=== PATIENT | male | born 1945 ===

== ENCOUNTER → 2020-02-15 | Outpatient (CLI) | payer MEDICARE, BC ==
[2020-02-15 12:28] LABS: Basophils # (A) 0.1 k/uL (0-0.2); Basophils % (A) 1 %; Eosinophils # (A) 0.8 k/uL (0-0.7); Eosinophils % (A) 6 %; HCT 46.8 % (39.0-53.0); HGB 14.8 gm/dL (13.0-17.5); Lymphocytes # (A) 2.7 k/uL (1.0-4.8); Lymphocytes % (A) 22 %; MCH 29.1 pg (25.0-35.0); MCHC 31.7 g/dL (31.0-37.0); MCV 91.9 fL (80.0-100.0); Mean Platelet Volume 7.9; Monocytes # (A) 0.8 k/uL (0-1.0); Monocytes % (A) 6 %; Neutrophils # (A) 7.8 k/uL (1.3-7.7); Neutrophils % (A) 63 %; Platelet Count 265 k/uL (150-450); RBC 5.09 m/uL (4.30-5.90); RDW 13.9 % (11.5-15.5); WBC 12.4 k/uL (3.8-10.6)
--- NOTE | 2020-02-15 13:26 | CT ---
EXAMINATION TYPE: CT chest w con DATE OF EXAM: 02/15/2020 COMPARISON: Chest x-ray February 06, 2020 and older study May 31, 2019 HISTORY: Cough and COPD. CT DLP: 552.6 mGycm. Automated Exposure Control for Dose Reduction was Utilized. TECHNIQUE: CT scan of the thorax is performed following with IV Contrast, patient injected with 100 mL of Isovue M300. FINDINGS: LUNGS: Some faint areas of groundglass opacity for reference vague area of posterior right upper lobe axial image 15 and vague area inferior posterior right upper lobe near axial image 31. Occasional sc attered micronodule for reference 2 to 3 mm left upper lobe axial image 22 and 6 to 7 mm groundglass nodule left upper lobe axial image 15. Occasional scattered bleb. No pleural effusion or pneumothorax . Mild central peribronchial wall thickening consistent with underlying COPD. MEDIASTINUM: There are prominent borderline enlarged bilateral hilar lymph nodes. Prominent but subce ntimeter thoracic lymph nodes in the prevascular space and paratracheal region. Trace pericardial eff usion is seen. No cardiomegaly. Mildly enlarged main pulmonary artery at 2.9 cm axial image 23 sugges ting underlying pulmonary hypertension. Adjacent ascending aorta measures up to 4.1 cm in diameter ax ial image 24 OTHER: No additional significant abnormality is seen. IMPRESSION: Mild emphysematous change with faint areas of groundglass opacity could reflect early asif ma and/or infiltrates. Consider Covid-19 testing in current medical environment. A Yellow level critical message alert has been initiated for Josee Kerr MD via the [employer] Critical Results System on 02/15/2020 1:24 PM. This message alert has been sent to Josee Kerr MD via the preferences provided by the clinician for the receipt of Radiology Critical Findings. Message ID [id number].
[2020-02-15 21:31] LABS: Cat Epith & Dander IgE <0.10 kU/L; Dermato. farinae IgE <0.10 kU/L
[2020-02-15 21:32] LABS: Cockroach IgE <0.10 kU/L; Dog Dander IgE <0.10 kU/L
[2020-02-15 21:33] LABS: Alternaria alternata IgE <0.10 kU/L; Aspergillus fumagatus IgE <0.10 kU/L; Cladosporian herbarum IgE <0.10 kU/L
[2020-02-15 21:34] LABS: Birch IgE <0.10 kU/L; Elm IgE <0.10 kU/L; Maple (Box Elder) IgE <0.10 kU/L; Oak IgE <0.10 kU/L; Ragweed,Common IgE <0.10 kU/L
[2020-02-15 21:35] LABS: Red Top (Bentgrass) IgE <0.10 kU/L
== END | disposition home or self-care (01) ==
LOC: RADCTMAIN 11:43
PROVIDERS: ATTEND Internal Medicine
DX: J43.9 Emphysema, unspecified (principal)
CPT/HCPCS: 82565; 84520; 85025; 86003; 82785; 71260; 36415; Q9967

== ENCOUNTER → 2020-10-02 | Outpatient (CLI) | payer MEDICARE, BC ==
[2020-10-02 17:38] LABS: Basophils # (A) 0.2 k/uL (0-0.2); Basophils % (A) 1 %; Eosinophils # (A) 4.4 k/uL (0-0.7); Eosinophils % (A) 28 %; HCT 47.9 % (39.0-53.0); HGB 15.6 gm/dL (13.0-17.5); Lymphocytes # (A) 2.5 k/uL (1.0-4.8); Lymphocytes % (A) 16 %; MCH 30.6 pg (25.0-35.0); MCHC 32.7 g/dL (31.0-37.0); MCV 93.7 fL (80.0-100.0); Mean Platelet Volume 8.1; Monocytes # (A) 0.9 k/uL (0-1.0); Monocytes % (A) 5 %; Neutrophils # (A) 7.8 k/uL (1.3-7.7); Neutrophils % (A) 48 %; Platelet Count 272 k/uL (150-450); RBC 5.11 m/uL (4.30-5.90); RDW 13.2 % (11.5-15.5)
[2020-10-02 19:37] LABS: Total Eosinophil Count 4439 #EOS/uL (150-300)
[2020-10-02 19:45] LABS: Eosinophils # (M) 4.48 k/uL (0-0.7); Lymphocytes # (M) 3.68 k/uL (1.0-4.8); Neutrophils # (M) 7.04 k/uL (1.3-7.7); Neutrophils % (M) 44 %; Nucleated Red Blood Cells 0 /100 WBC (0-0); Total Cells Counted 100
== END | disposition home or self-care (01) ==
LOC: LABWHC1 15:18
PROVIDERS: ATTEND Internal Medicine
DX: J82.83 Eosinophilic asthma (principal)
CPT/HCPCS: 36415; 85008; 85025